=== PATIENT | male | born 1940 | race Caucasian/White ===

== ENCOUNTER → 2022-09-01 | Outpatient (CLI) | payer OTHER | END | disposition home or self-care (01) | LOC: TOM 09:46 | PROVIDERS: ATTEND Orthopaedic Surgery | DX: S42.252A Displaced fracture of greater tuberosity of left humerus, initial encounter for closed fracture (principal) ==

== ENCOUNTER 2022-09-11 13:36 | Outpatient (CLI) | payer OTHER | END 2022-09-11 13:38 | disposition home or self-care (01) | LOC: LAB 13:36 | PROVIDERS: ATTEND Orthopaedic Surgery | DX: D64.9 Anemia, unspecified (principal); D68.8 Other specified coagulation defects; N39.0 Urinary tract infection, site not specified; Z86.14 Personal history of Methicillin resistant Staphylococcus aureus infection; Z76.89 Persons encountering health services in other specified circumstances; I10 Essential (primary) hypertension ==

== ENCOUNTER 2022-10-29 09:59 | Outpatient (CLI) | payer OTHER | END 2022-10-29 10:05 | disposition home or self-care (01) | LOC: RAD 09:59 | PROVIDERS: ATTEND Orthopaedic Surgery | DX: S42.252D Displaced fracture of greater tuberosity of left humerus, subsequent encounter for fracture with routine healing (principal) ==

== ENCOUNTER 2023-01-21 07:53 | Outpatient (CLI) | payer OTHER | END 2023-01-21 07:57 | disposition home or self-care (01) | LOC: RAD 07:53 | PROVIDERS: ATTEND Orthopaedic Surgery | DX: M75.122 Complete rotator cuff tear or rupture of left shoulder, not specified as traumatic (principal); S42.252D Displaced fracture of greater tuberosity of left humerus, subsequent encounter for fracture with routine healing ==

== ENCOUNTER 2023-05-13 11:53 | Outpatient (CLI) | payer OTHER | END 2023-05-13 12:02 | disposition home or self-care (01) | LOC: MRI 11:53 | PROVIDERS: ATTEND Orthopaedic Surgery | DX: M24.512 Contracture, left shoulder (principal); S42.252 Displaced fracture of greater tuberosity of left humerus | CPT/HCPCS: 73221 ==